=== PATIENT | female | born 1940 | race Caucasian/White ===

== ENCOUNTER → 2017-04-06 | Outpatient (CLI) | payer OTHER, BC | LOC: FIMAGING 15:36 | PROVIDERS: ATTEND Family Medicine | DX: M51.86 Other intervertebral disc disorders, lumbar region (principal); M16.11 Unilateral primary osteoarthritis, right hip ==

== ENCOUNTER → 2019-01-03 | Outpatient (CLI) | payer OTHER, BC | LOC: FIMAGING 09:15 | PROVIDERS: ATTEND Family Medicine Geriatric Medicine | DX: Z12.31 Encounter for screening mammogram for malignant neoplasm of breast (principal); Z13.820 Encounter for screening for osteoporosis; M85.89 Other specified disorders of bone density and structure, multiple sites | CPT/HCPCS: 82607-90 ==

== ENCOUNTER → 2019-01-05 | Outpatient (CLI) | payer OTHER, BC | LOC: FIMAGING 18:21 | PROVIDERS: ATTEND Physical Medicine & Rehabilitation | DX: M41.85 Other forms of scoliosis, thoracolumbar region (principal); M51.36 Other intervertebral disc degeneration, lumbar region; M12.88 Other specific arthropathies, not elsewhere classified, other specified site; M48.061 Spinal stenosis, lumbar region without neurogenic claudication; M50.30 Other cervical disc degeneration, unspecified cervical region; M47.894 Other spondylosis, thoracic region ==

== ENCOUNTER → 2019-02-23 | Outpatient (CLI) | payer OTHER, BC | LOC: FIMAGING 14:52 | DX: N28.1 Cyst of kidney, acquired (principal) ==